=== PATIENT | female | born 1965 | race American Indian/Alaskan Native ===

== ENCOUNTER 2017-05-12 01:56 | Emergency (ER) | payer MEDICAID ==
[2017-05-12] MEDS ORDERED: ATROVENT IH ONE (02:31)
[2017-05-12] MEDS ORDERED: PROVENTIL IH ONE (02:31)
[2017-05-12] MEDS ORDERED: NORCO 5/325 PO ONE (02:31)
--- NOTE | 2017-05-12 02:37 | Emergency Department Report ---
HPI - General Chief Complaint: Chest Pain Time Seen by Provider: 05/12/17 02:16 - HPI HPI: Room 4 The patient is a 51-year-old female presenting with chief complaint of cough and fever. The patient states for the past 3-4 days she's had chest congestion and a cough productive of green sputum. Patient does admit to rhinorrhea. The patient states she's been taking care of her granddaughter who is been diagnosed with confirmed influenza. The patient states she's had a fever 102 F. Patient does admit to nausea and vomiting. The patient also admits to urinary frequency for the past 1.5 weeks. The patient states she has chest pain with her cough. The patient gets her pain is score of 11/10. Location: [See above] Duration: [See above] Quality: Soreness Severity: Moderate Modifying factors: [see above] Context: [see above] Mode of transportation: [not driving] ED Past Medical Hx - Past Medical History Previous Medical History?: Yes Hx Arthritis: Yes Hx Asthma: Yes Additional medical history: lupus - Surgical History Past Surgical History?: No - Family History Family history: no significant - Social History Smoking Status: Never Smoker Substance Use Type: Marijuana - Medications Home Medications: Home Medications Medication Instructions Recorded Confirmed Last Taken Type ALBUTEROL Inhaler [Proair] 2 puff IH QID PRN #1 inhalation 05/12/17 Unknown Rx Ciprofloxacin HCl [Ciprofloxacin 500 mg PO BID #14 tablet 05/12/17 Unknown Rx TAB] HYDROcodone/APAP 5-325 [[place] 1 - 2 each PO Q6HR PRN #14 tablet 05/12/17 Unknown Rx 5/325] Ibuprofen [Motrin] 800 mg PO Q8HR PRN #20 tablet 05/12/17 Unknown Rx Oseltamivir [Tamiflu] 75 mg PO BID #10 cap 05/12/17 Unknown Rx ED Review of Systems ROS: Stated complaint: DIFFICULTY IN BREATHING/CHEST PAIN Other details as noted in HPI Constitutional: fever ENT: congestion, other (rhinorrhea) Respiratory: cough Gastrointestinal: nausea, vomiting Musculoskeletal: myalgia Physical Exam - Physical Exam Vital Signs: Vital Signs 05/12/17 02:16 Temperature 98.2 F Pulse Rate 86 Respiratory 17 Rate Blood Pressure 129/88 Blood Pressure 129/88 [Left] O2 Sat by Pulse 100 Oximetry Physical Exam: GENERAL: The patient is well-developed well-nourished female on a stretcher not appearing to be in acute distress. [] HEENT: Normocephalic. Atraumatic. Extraocular motions are intact. Patient has moist mucous membranes. Oropharynx clear NECK: Supple. Trachea midline CHEST/LUNGS: Clear to auscultation. There is no respiratory distress noted. Occasional cough HEART/CARDIOVASCULAR: Regular. There is no tachycardia. There is no gallop rub or murmur. ABDOMEN: Abdomen is soft, nontender. Patient has normal bowel sounds. There is no abdominal distention. SKIN: There is no rash. There is no edema. There is no diaphoresis. NEURO: The patient is awake, alert, and oriented. The patient is cooperative. The patient has normal speech MUSCULOSKELETAL: There is no evidence of acute injury. ED Course Vital Signs 05/12/17 02:16 Temperature 98.2 F Pulse Rate 86 Respiratory 17 Rate Blood Pressure 129/88 Blood Pressure 129/88 [Left] O2 Sat by Pulse 100 Oximetry ED Medical Decision Making - Lab Data Result diagrams: 05/12/17 02:48 05/12/17 02:48 Laboratory Tests 05/12/17 05/12/17 05/12/17 02:43 02:48 02:48 WBC 5.8 RBC 4.17 Hgb 13.4 Hct 39.9 MCV 96 MCH 32 MCHC 34 RDW 12.9 L Plt Count 159 Lymph % (Auto) 8.4 L Ponce % (Auto) 11.6 H Eos % (Auto) 0.2 Baso % (Auto) 0.4 Lymph # 0.5 L Ponce # 0.7 Eos # 0.0 Baso # 0.0 Seg Neutrophils % 79.4 H Seg Neutrophils # 4.6 Sodium 139 Potassium 4.1 Chloride 101.0 Carbon Dioxide 20 L Anion Gap 22 BUN 9 Creatinine 0.7 Estimated GFR > 60 BUN/Creatinine Ratio 13 Glucose 104 H Calcium 9.2 Total Creatine Kinase 125 Troponin T < 0.010 Urine Color Yellow Urine Turbidity Clear Urine pH 6.0 Ur Specific [place] 1.027 Urine Protein 30 mg/dl Urine Glucose (UA) Neg Urine Ketones 80 Urine Blood Lg Urine Nitrite Neg Urine Bilirubin Neg Urine Urobilinogen 4.0 Ur Leukocyte Esterase Neg Urine WBC (Auto) 3.0 Urine RBC (Auto) 100.0 U Epithel Cells (Auto) 7.0 Urine Mucus 2+ - Radiology Data Radiology results: report reviewed (chest x-ray), image reviewed (chest x-ray) interpreted by me: Chest x-ray-no focal infiltrates, no pneumothorax FINAL REPORT EXAM: XR CHEST ROUTINE 2V HISTORY: chest congestion, productive cough, fever TECHNIQUE: PA and lateral views of the chest were submitted. There are no previous studies available for comparison. FINDINGS: The lungs are hyperinflated. There are no discrete infiltrates or effusions. There are nipple shadows overlying both lung bases. The heart size is normal. The lungs are not congested. The skeletal structures are well-maintained. IMPRESSION: Hyperinflation. No evidence of infiltrates or congestion. Transcribed By: RB Dictated By: KENNEDY SCHULTZ MD Electronically Authenticated By: KENNEDY SCHULTZ MD Signed Date/Time: 05/11/172326 DD/ 26 TD/TT: 05/11/172326 - Differential Diagnosis influenza, pneumonia, UTI Critical care attestation.: If time is entered above; I have spent that time in minutes in the direct care of this critically ill patient, excluding procedure time. ED Disposition Clinical Impression: Cough, Acute bronchitis, Proteinuria, Urinary frequency Disposition: - TO HOME OR SELFCARE Is pt being admited?: No Does the pt Need Aspirin: No Condition: Stable Instructions: Acute Bronchitis (ED) Additional Instructions: Return to the emergency department immediately should you develop worsening symptoms, fever, inability to tolerate food or liquid or any other concerns. Prescriptions: ALBUTEROL Inhaler [Proair] 2 puff IH QID PRN #1 inhalation PRN Reason: Shortness Of Breath Ciprofloxacin HCl [Ciprofloxacin TAB] 500 mg PO BID #14 tablet HYDROcodone/APAP 5-325 [[place] 5/325] 1 - 2 each PO Q6HR PRN #14 tablet PRN Reason: Pain Ibuprofen [Motrin] 800 mg PO Q8HR PRN #20 tablet PRN Reason: Pain Oseltamivir [Tamiflu] 75 mg PO BID #10 cap Referrals: TIGIST SARMIENTO MD [Primary Care Provider] - 3-5 Days FLORENTINO MARCH MD [Staff Physician] - 3-5 Days (Dr. March is a cdc associate. Please follow-up with him for further evaluation of proteinuria ( protein in your urine)) Time of Disposition: 04:16
[2017-05-12 03:06] LABS: Basophils % (Auto) 0.4 % (0.0-1.8); Eosinophils % (Auto) 0.2 % (0.0-4.3); Hematocrit 39.9 % (30.3-42.9); Hemoglobin 13.4 gm/dl (10.1-14.3); Lymphocytes # (Auto) 0.5 K/mm3 (1.2-5.4); Lymphocytes % (Auto) 8.4 % (13.4-35.0); Mean Corpuscular HGB Conc 34 % (30-34); Mean Corpuscular Hemoglobin 32 pg (28-32); Mean Corpuscular Volume 96 fl (79-97); Monocytes # (Auto) 0.7 K/mm3 (0.0-0.8); Monocytes % (Auto) 11.6 % (0.0-7.3); Platelet Count 159 K/mm3 (140-440); Red Blood Count 4.17 M/mm3 (3.65-5.03); Red Cell Distribution Width 12.9 % (13.2-15.2)
[2017-05-12 03:13] LABS: Bilirubin,Urine NEG (Negative); Blood,Urine LG (Negative); Color,Urine Yellow (Yellow); Mucus,Urine 2+ /HPF; Nitrite,Urine NEG (Negative)
--- NOTE | 2017-05-12 03:29 | XRay Report ---
FINAL REPORT EXAM: XR CHEST ROUTINE 2V HISTORY: chest congestion, productive cough, fever TECHNIQUE: PA and lateral views of the chest were submitted. There are no previous studies available for comparison. FINDINGS: The lungs are hyperinflated. There are no discrete infiltrates or effusions. There are nipple shadows overlying both lung bases. The heart size is normal. The lungs are not congested. The skeletal structures are well-maintained. IMPRESSION: Hyperinflation. No evidence of infiltrates or congestion.
[2017-05-12 04:08] LABS: BUN/Creatinine Ratio 13; Blood Urea Nitrogen 9 mg/dL (7-17); Calcium 9.2 mg/dL (8.4-10.2); Hemolysis Index 37
[2017-05-12 04:14] LABS: Creatine Kinase MB < 1.0 ng/mL (0.0-4.0)
[2017-05-12 04:23] VITALS: BP 130/82
== END 2017-05-12 04:27 | disposition home or self-care (01) ==
LOC: ED 01:56
DX: J20.9 Acute bronchitis, unspecified (principal); R80.9 Proteinuria, unspecified; R35.0 Frequency of micturition; J45.909 Unspecified asthma, uncomplicated; F12.10 Cannabis abuse, uncomplicated
CPT/HCPCS: 36415; 71046; 80048; 81001; 82550; 82553; 84484; 85025